=== PATIENT | male | born 1965 | race Caucasian/White ===

== ENCOUNTER 2016-12-18 23:04 | Emergency (ER) | payer OTHER, MEDICAID ==
[2016-12-18 23:15] VITALS: BP 116/80; PULSE 80; RESP 18; TEMP 97.7; O2SAT 97
--- NOTE | 2016-12-18 23:42 | EDPHY ---
H & P Stated Complaint: RIGHT HERNIA X2 WKS, WORSE SINCE THIS AM HPI/ROS: Chief Complaint: Lump in right groin HPI: 50-year-old male felt a lump developed in his right groin about 2 weeks ago. He is intermittently having a bulging in that area. This morning he had worsening pain and noticed a bulge into his right groin. He was able to push it back in but every time he stands up possible back out an. Some intermittent pain. No nausea or vomiting. No diarrhea or constipation. Does not have a history of same. No recent lifting or straining. ROS: 10 point Review of Systems is negative except as noted in the HPI. PMH: Bipolar disorder Medications: Medical marijuana Allergies: "Psychotropics" Social History: Positive smoking, no alcohol, positive medical marijuana Family History: non-contributory Physical Exam: Gen: Awake, Alert, No Distress HEENT: Nose: no rhinorrhea Eyes: PERRLA, EOMI Mouth: Moist mucosa Abd: Soft, non-tender, no guarding Genital: Testes are normal, penis is normal, he has a palpable indirect hernia on on the right with no palpable incarceration or bowel contents. Ext: no edema, non-tender Skin: no rash Neuro: CN II-XII intact, Sensation grossly intact, Strength 5/5 in bilateral upper and lower extremities - Personal History Current Tetanus/Diphtheria Vaccine: Yes - Medical/Surgical History Hx Asthma: No Hx Chronic Respiratory Disease: No Hx Diabetes: No Hx Cardiac Disease: No Hx Renal Disease: No Hx Cirrhosis: No Hx Alcoholism: Yes Hx HIV/AIDS: No Hx Splenectomy or Spleen Trauma: No Other PMH: RIGHT HIP, LEFT ANKLE, BIPOLAR, BLADDER DAMAGE/CLOTS, HEP C, ARTHRITIS, PSORIASIS, ALCOHOLISM - Social History Smoking Status: Current every day smoker Constitutional: Initial Vital Signs Temperature (C) 36.5 C 12/18/16 23:08 Heart Rate 80 12/18/16 23:08 Respiratory Rate 18 12/18/16 23:08 Blood Pressure 116/80 12/18/16 23:08 O2 Sat (%) 97 12/18/16 23:08 O2 Delivery Mode Room Air Allergies/Adverse Reactions: quetiapine fumarate [From Seroquel] Allergy (Unknown, Verified 12/18/16 23:08) ziprasidone HCl [From Geodon] Allergy (Verified 12/18/16 23:08) ziprasidone mesylate [From Geodon] Allergy (Verified 12/18/16 23:08) Home Medications: Medication Instructions Recorded NK [No Known Home Meds] 12/18/16 Medical Decision Making ED Course/Re-evaluation: Patient has a non incarcerated right indirect inguinal hernia. No indication for acute surgical intervention at this time. Will be referred for outpatient surgical follow-up for possible repair. Departure - Departure Disposition: Home, Routine, Self-Care Clinical Impression: Indirect inguinal hernia Condition: Good Instructions: Inguinal Hernia (ED) Additional Instructions: Follow up with general surgeon in 1-2 weeks for evaluation of your hernia. Return to the emergency department if you developed a bulge in your groin that you were are able to push back into place, increasing pain, nausea or vomiting, or any concerns. Referrals: Mirtha Proctor MD [Medical Doctor] - As per Instructions
== END 2016-12-18 23:48 | disposition home or self-care (01) ==
DX: K40.90 Unilateral inguinal hernia, without obstruction or gangrene, not specified as recurrent (principal); F17.200 Nicotine dependence, unspecified, uncomplicated

== ENCOUNTER 2017-01-23 06:34 | Day surgery (SDC) | payer OTHER, MEDICAID ==
[2017-01-23] MEDS ORDERED: ceFAZolin 2 GM/DEXTROSE 100 ML IV ONE (08:14)
--- NOTE | 2017-01-23 08:16 | PDHPUP ---
History & Physical Update H&P update statement: This history and physical update is based on an assessment of the patient which was completed after admission or registration (within 24 hours), but prior to the surgery/procedure. H&P update: H&P reviewed & patient examined, no change in patient's condition since H&P completed
[2017-01-23] MEDS ORDERED: MIDAZOLAM 2 MG/2 ML VIAL IVP ONE (08:26)
[2017-01-23] MEDS ORDERED: MIDAZOLAM 2 MG/2 ML VIAL ONE (08:27)
--- NOTE | 2017-01-23 08:28 | PDANEPAE ---
ANE History of Present Illness 51 year old male for right inguinal hernia repair. 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 ARTHRITIS - Chronic Pain History Chronic Pain: Yes (BACK PAIN) - Surgical History Prior Surgeries: R JOSE JUAN. RECONSTR L ANKLE ANE Review of Systems Review of Systems: - Exercise capacity Exercise capacity: >=4 METS METS (RN): 4 METS ANE Patient History - Allergies Allergies/Adverse Reactions: quetiapine fumarate [From Seroquel] Allergy (Unknown, Verified 12/18/16 23:08) ziprasidone HCl [From Geodon] Allergy (Verified 12/18/16 23:08) ziprasidone mesylate [From Geodon] Allergy (Verified 12/18/16 23:08) - Home Medications Home medications: home medication list seen and reviewed Home Medications: NK [No Known Home Meds] 12/18/16 [Last Taken Unknown] - NPO status NPO Status: no food or drink >8 hours NPO Since - Liquids (Date): 01/22/17 NPO Since - Liquids (Time): 23:00 NPO Since - Solids (Date): 01/22/17 NPO Since - Solids (Time): 23:00 - Anes Hx Anes Hx: no prior problems - Smoking Hx Smoking Status: Current every day smoker - Alcohol Use Alcohol Use: Sober - Family Anes Hx Family Anes Hx: neg - N/A Family Hx Anesthesia Complications: NEG ANE Labs/Vital Signs - Vital Signs Vital Signs: reviewed preoperatively; see RN documention for details Blood Pressure: 114/80 Heart Rate: 61 Respiratory Rate: 16 O2 Sat (%): 96 Height: 182.88 cm Weight: 79.379 kg ANE Physical Exam - Airway Neck exam: FROM Mallampati Score: Class 1 Mouth exam: normal dental/mouth exam - Pulmonary Pulmonary: no respiratory distress - Cardiovascular Cardiovascular: regular rate and rhythym - ASA Status ASA Status: II ANE Anesthesia Plan Anesthesia Plan: general endotracheal anesthesia
[2017-01-23] MEDS ORDERED: LIDOCAINE 2% 5 ML SDV ONE (08:31)
[2017-01-23] MEDS ORDERED: PROPOFOL 200 MG/20 ML VIAL ONE (08:31)
[2017-01-23] MEDS ORDERED: fentaNYL 100 MCG/2 ML INJ ONE ×2 (08:31→09:19)
[2017-01-23] MEDS ORDERED: ROCURONIUM 50 MG/5 ML VIAL ONE ×2 (08:32→08:58)
[2017-01-23] MEDS ORDERED: DEXAMETHASONE 4 MG/ML VIAL ONE (08:57)
[2017-01-23] MEDS ORDERED: ONDANSETRON 4 MG/2 ML VIAL ONE (08:57)
[2017-01-23] MEDS ORDERED: NALOXONE HCL 0.4 MG/ML INJ IVP PRN ×2 (09:00→10:37)
[2017-01-23] MEDS ORDERED: ONDANSETRON 4 MG/2 ML VIAL IVP PRN ×2 (09:00→10:37)
[2017-01-23] MEDS ORDERED: HYDROmorphONE/DILAUDID 1 MG/ML INJ IVP PRN ×2 (09:00→10:37)
[2017-01-23] MEDS ORDERED: HYDROCODONE/APAP 5/325 TAB PO PRN ×2 (09:00→10:37)
[2017-01-23] MEDS ORDERED: LR 500 ML IV PRN ×2 (09:00→10:37)
[2017-01-23] MEDS ORDERED: fentaNYL 100 MCG/2 ML INJ IVP PRN (09:00)
[2017-01-23] MEDS ORDERED: SUGAMMADEX SODIUM 200 MG/2 ML VIAL IVP ONE (09:24)
[2017-01-23] MEDS ORDERED: KETOROLAC 30 MG/1 ML SDV ONE (10:05)
[2017-01-23] MEDS ORDERED: BUPIVACAINE 0.5% 30 ML SDV ONE (10:14)
--- NOTE | 2017-01-23 10:15 | POSTOPPROG ---
Post Op Note Date of Operation: 01/23/17 Surgeon: Mirtha Proctor Anesthesiologist: [email or web address] Anesthesia: GET(General Endotracheal) Pre-op Diagnosis: rih Post-op Diagnosis: lap bih and umbilical hernia repair Indication: 51 year old with symptomatic rih Procedure: lap bih, umbilical Findings: bih, very stuck on right, incarcerated umbilical Inf/Abcess present in the surg proc area at time of surgery?: No Depth: Superfical (Skin SQ) EBL: Minimal Specimen(s): none
[2017-01-23] MEDS: fentaNYL 100 MCG/2 ML INJ IVP PRN ×2 (10:43→10:55)
--- NOTE | 2017-01-23 10:50 | POSTANESTH ---
Post Anesthetic Evaluation Cardiovascular Status: Normal, Stable, Similar to Pre-Op Cond Respiratory Status: Normal, Stable, Similar to Pre-op Cond. Level of Consciousness/Mental Status: Can Participate in Eval, Alert and Oriented Pain Control: Adequate, Prn Tx Ordered Nausea/Vomiting Control: Adequate, Prn Tx Ordered Complications Possibly Related to Anesthesia: None Noted
[2017-01-23 11:00] VITALS: O2SAT 94
[2017-01-23 11:08] VITALS: PULSE 66; RESP 16; TEMP 98.1
[2017-01-23] MEDS ORDERED: OXYCODONE/APAP 5/325 TAB PO PRN (11:23)
--- NOTE | 2017-01-23 11:44 | GOP ---
[f rep st] OPERATIVE REPORT DATE OF OPERATION: 01/23/2017 SURGEON: Mirtha Proctor MD PRINT WASHER: REYNALDO George. ANESTHESIA: General. ANESTHESIOLOGIST: Elton Osorio MD. PREOPERATIVE DIAGNOSIS: Right inguinal hernia. POSTOPERATIVE DIAGNOSIS: Bilateral inguinal hernia and umbilical hernia. PROCEDURE PERFORMED: Laparoscopic bilateral inguinal hernia repair and open umbilical hernia repair. FINDINGS: Bilateral indirect inguinal hernias with the right side very stuck and small incarcerated umbilical hernia. SPECIMENS: None. ESTIMATED BLOOD LOSS: 10 cc. INDICATIONS: The patient is a 51-year-old man who reported gurgling in his right groin, hernia was detected. He presents for repair. DESCRIPTION OF PROCEDURE: The patient was brought into the operating room, placed supine on the table, and general anesthesia was administered. His abdomen was prepped and draped in the usual sterile fashion. I infiltrated all sites with 0.5% Marcaine prior to making incisions. I made an incision beneath his umbilicus. I dissected down through the subcutaneous tissues and found a small umbilical hernia. I continued my dissection through the anterior rectus sheath. I swept the rectus muscles laterally and created a preperitoneal space. I directed the balloon tipped trocar toward the pubis and performed hand insufflation with the camera in place. He was placed in Trendelenburg position. I exchanged the dissecting balloon for the working balloon. I then placed a 5 mm suprapubic trocar and a 5 mm trocar between the 1st and 2nd trocars. I dissected the space in the right groin. I kept the inferior epigastric vessels anterior to the plane. I swept the pubis free of investing tissues. I created a space laterally. He had a very large hernia sac that required a substantial amount of dissection. I breached the hernia sac due to it being so thin in a couple of places and reapproximated easily with a clip revenue accounting manager. Once the hernia sac was fully dissected with the cord and cord structures being protected, I placed a piece of laparoscopic self-fixating ProGrip mesh to cover the direct, indirect, and femoral spaces. This was tacked to the pubis and anteriorly. I explored the left side and I also found a hernia on this side. It was repaired in a similar fashion. The preperitoneal space was allowed to desufflate. Then attention was drawn to the umbilical hernia. I came around the umbilical stalk, I freed it from the fascia. I removed the incarcerated omentum. I then closed the defect which is approximately 4 mm with 0 Surgilon. I also closed the anterior rectus sheath with 0 Surgilon. I created a neoumbilicus with 0 Vicryl. I closed the skin with 4-0 Monocryl. Mastisol, Steri-Strips, sterile dressing were applied. He was awakened in the operating room, extubated, transferred to PACU in stable condition. SPECIMENS: None. /[id number]/MODL MTDD
[2017-01-23 12:44] VITALS: BP 114/71
== END 2017-01-23 12:40 | disposition home or self-care (01) ==
LOC: FSGY 06:34
PROVIDERS: ATTEND Surgery
PROC: 0YUA4JZ Supplement Bilateral Inguinal Region with Synthetic Substitute, Percutaneous Endoscopic Approach (ICD-10-PCS; principal; 2017-01-23 08:30)
PROC: 0WQF0ZZ Repair Abdominal Wall, Open Approach (ICD-10-PCS; principal; 2017-01-23 08:30)
DX: K40.20 Bilateral inguinal hernia, without obstruction or gangrene, not specified as recurrent (principal); K42.0 Umbilical hernia with obstruction, without gangrene
CPT/HCPCS: 49587; 49650; C1727; C1781; J0690; J1100; J1885; J2250; J2405; J2704; J3010

== ENCOUNTER → 2017-05-08 | Outpatient (CLI) | payer OTHER, MEDICAID | LOC: FIMAGING 13:03 | PROVIDERS: ATTEND Nurse Practitioner | DX: B18.2 Chronic viral hepatitis C (principal); I70.0 Atherosclerosis of aorta ==